=== PATIENT | male | born 1980 | race Caucasian/White ===

== ENCOUNTER 2020-11-27 12:29 | Emergency (ER) | payer MEDICAID ==
[~2020-11-27] VITALS: Ht 185.4 cm; Wt 95.5 kg
[2020-11-27] MEDS ORDERED: CEPH250T PO (13:27)
[2020-11-27] MEDS ORDERED: BACDS PO (13:27)
[2020-11-27 14:13] VITALS: BP 137/71
== END 2020-11-27 13:57 | disposition home or self-care (01) ==
LOC: ER 12:30
DX: L03.317 Cellulitis of buttock (principal); Z79.899 Other long term (current) drug therapy
CPT/HCPCS: 99283